=== PATIENT | female | born 1955 | race Caucasian/White ===

== ENCOUNTER 2016-05-28 21:56 | Inpatient (IN) ==
--- NOTE | 2016-05-28 22:24 | EKG Report ---
Stationary ECG Study [facility] ER Test Date: 05/28/2016 10:05:54 PM Pat Name: ALLA SALAS Department: Room: 287 Gender: F Ward Assistant: Sana : 1955 Requested by: Rei Mccabe Order Number: [id number] Reading MD: DREW NAPIER Intervals [place] Rate: 91 P: 48 IN: 163 QRS: 45 QRSD: 78 T: -14 QT: 337 QTc: 386 Interpretive Statements SINUS RHYTHM WITH OCCASIONAL VENTRICULAR PREMATURE COMPLEXES ISCHEMIA Electronically Signed On 05-29-16 09:21:51 ASSET SPECIALIST by DREW NAPIER [email or web address]
[2016-05-28] MEDS ORDERED: METOPROLOL TARTRATE 25 MG TABLET PO STA (22:28)
[2016-05-28] MEDS ORDERED: MORPHINE 2 MG/1 ML SYRINGE IV STA (22:28)
[2016-05-28] MEDS ORDERED: ASPIRIN 325 MG TABLET PO STA (22:28)
[2016-05-28] MEDS ORDERED: NITROGLYCERIN 2% OINT 1 INCH/GM PACK TOP STA (22:28)
[2016-05-28] MEDS ORDERED: ALUM/MAG/SIMETH/LIDO VISC 1:1 30 ML BOTTLE PO STA (22:28)
[2016-05-28] MEDS ORDERED: ONDANSETRON 4 MG/2 ML VIAL IV STA (22:28)
--- NOTE | 2016-05-28 22:44 | Emergency Department Note ---
Herman Hays Brittany, am scribing for, and in the presence of, Rei Yanes MD 22:33. Joaquín Hays Charles R, MD, personally performed the services described in this documentation, ascribed by Breonna Sutton in my presence, and it is both accurate and complete . Arrival - Arrival Chief Complaint: Chest Pain Stated Complaint: CHEST PAIN/NECK AND BACK ED Nursing Triage Note: C/C substernal chest pain, sharp sudden pains, non radiating, pain in right side of neck, short of breath started Sunday. Pain has been getting worse since. Not makes it worse or better. Left leg swelling and pain. Has stent in left illiac for blood clots Mode of Arrival: Ambulatory Limitations: No Limitations Source: Patient, Family, RN Notes Reviewed Time Seen by Provider: 05/28/16 22:19 - History of Present Illness HPI Narrative: Patient is a 61 y/o white female presenting to the ED with c/o intermittent "electric shock", substernal chest pain that onset yesterday. Patient also has c /o associated right-sided neck pain, shortness of breath, fatigue, nausea, diaphoresis, and headache with this. Patient notes that nothing makes pain better or worse. Patient reports that she has also been having some left leg pain with some swelling and is concerned about possible DVT. She does take an Aspirin a day. Patient notes that she is a patient of Dr. Baker, but has not seen him in about 5 years. Patient has a history of Left Iliac Stent Placement in 1994. Patient has no other complaint/pain in the ED at this time. Allergies/Adverse Reactions: Allergies Allergy/AdvReac Type Severity Reaction Status Date / Time iodine Allergy Severe ANAPHYLAXIS Verified 05/28/16 22:05 Wasp Venom Allergy Severe ANAPHYLAXIS Verified 05/28/16 22:05 Home Medications: Home Medications Medication Instructions Recorded Confirmed Type Aspirin [Ecotrin] 81 mg PO DAILY 08/10/14 05/28/16 History Bisoprolol Fumarate [Zebeta] 10 mg PO DAILY 08/10/14 05/28/16 History Citalopram [CeleXA] 40 mg PO DAILY 08/10/14 05/28/16 History Epinephrine [Epipen 2-Jeffery] 0.3 mg IJ DIRECTED #1 ml 08/10/14 05/28/16 Rx Liraglutide [Victoza 2-Jeffery] 1.6 ml IM AC SUPPER 08/10/14 05/28/16 History Montelukast Tab [Singulair Tab] 10 mg PO DAILY 08/10/14 05/28/16 History metFORMIN [Glucophage] 500 mg PO BID 08/10/14 05/28/16 History Albuterol Sulfate [Ventolin HFA] 2 puff INH Q4-6H PRN 11/25/15 05/28/16 History Atorvastatin [Lipitor] 10 mg PO BEDTIME 11/25/15 05/28/16 History Canagliflozin [Invokana] 300 mg PO DAILY 11/25/15 05/28/16 History ChlordiazePOX/CLIDINIUM 5-2.5 1 capsule PO TIDAC 11/25/15 05/28/16 History [Librax] Clorazepate [Tranxene] 7.5 mg PO BID PRN 11/25/15 05/28/16 History Diazepam [Valium] 10 mg PO BID PRN 11/25/15 05/28/16 History Diclofenac Sodium 75 mg PO BID 11/25/15 05/28/16 History Fluticasone/Salmeterol 250-50 1 puff INH BID 11/25/15 05/28/16 History [Advair 250-50] Gabapentin Cap/Tab [Neurontin 300 mg PO TID 11/25/15 05/28/16 History Cap/Tab] HYDROcodone/ACETAMIN 10-325 [Bowman 1 tablet PO Q6H PRN 11/25/15 05/28/16 History 10-325] Insulin Aspart [NovoLOG FlexPen] See Protocol SUBCUT DIRECTED 11/25/15 History Insulin Detemir [Levemir] 35 unit SUBCUT BEDTIME 11/25/15 05/28/16 History LORazepam TAB [Ativan Tab] 1 mg PO BID PRN 11/25/15 05/28/16 History Levothyroxine Tab [Synthroid Tab] 137 mcg PO DAILY@0700 11/25/15 05/28/16 History Metaxalone [Skelaxin] 800 mg PO TID PRN 11/25/15 05/28/16 History Ondansetron Tab [Zofran Tab] 4 mg PO TID PRN 11/25/15 05/28/16 History Pantoprazole Tab [Protonix Tab] 40 mg PO DAILY 11/25/15 05/28/16 History Potassium Chloride Cap/Tab [K Dur] 20 meq PO BID 11/25/15 05/28/16 History Promethazine Tab [Phenergan Tab] 25 mg PO BID PRN 11/25/15 05/28/16 History Tiotropium Inhalation [Spiriva 18 mcg INH DAILY 11/25/15 05/28/16 History Handihaler] Review of System - Review of System 12 point system: reviewed and no additional remarkable complaints except as stated - Review of System Constitutional: Present: diaphoresis Respiratory: Present: respiratory distress Cardiovascular: Present: chest pain Gastrointestinal: Present: nausea Musculoskeletal: Present: leg pain, neck pain Neurological: Present: headache Endocrine: Present: fatigue Medical,Surgical,& Family Hx - Medical History Cardio: History of: Cardiac Dysrhythmia, Hypertension Neurology: History of: Migraine, Peripheral Neuropathy Endocrine: History of: Diabetes Mellitus (NIDDM), Dyslipidemia, Thyroid Disorder Respiratory: History of: COPD, Obstructive Sleep Apnea Genitourinary: No history of: Bladder Problem, Kidney Stones Gastrointestinal: History of: GERD Musculoskeletal: History of: Back/Neck Problems (neck surgery) Hematology: History of: Clotting Problems (filter) Other: History of: Miscellaneous Medical Problems (migraines, depression , hypothyroid) - Surgical History Cardiac Surgeries: Sugical HX of: Cardiac Catheterization HEENT Surgeries: Surgical HX of: Thyroid Surgery Patient denies: Tonsilectomy & Adenoidectomy Abdominal Surgeries: Surgical HX of: Cholecystectomy, Colonoscopy, EGD Patient denies: Appendectomy Reproductive Surgeries: Surgical HX of;: Hysterectomy Orthopedic Surgeries: Patient denies;: Total Hip Replacement, Total Knee Replacement - Social History Smoking Status: Never smoker Frequency of Alcohol Use: None Type of Drug Use: None Exam Vital Signs: Vital Signs Temperature 97.7 F 05/28/16 21:59 Pulse Rate 89 05/28/16 21:59 Respiratory Rate 20 05/28/16 21:59 Blood Pressure 149/84 05/28/16 21:59 O2 Sat by Pulse Oximetry 93 L 05/28/16 21:59 - General General appearance: alert, in no apparent distress - Head Head exam: Present: atraumatic, normocephalic - Eye Eye exam: Present: PERRL, EOMI - ENT ENT exam: Present: mucous membranes moist, TM's normal bilaterally - Neck Neck exam: Present: full ROM, trachea midline. Absent: tenderness - Chest Chest inspection: Present: symmetric chest wall rise. Absent: tenderness - Respiratory Respiratory exam: Present: normal lung sounds bilaterally. Absent: rales, rhonchi, wheezes - Cardiovascular Cardiovascular exam: Present: regular rate, normal rhythm, normal heart sounds. Absent: murmur, rubs, gallop - Abdominal Exam Abdominal exam: Present: soft, normal bowel sounds. Absent: distention, tenderness - Extremities Exam Extremities exam: Present: full ROM, tenderness (left leg). Absent: pedal edema , calf tenderness - Back Exam Back exam: Present: full ROM. Absent: tenderness - Neurological Exam Neurological exam: Present: alert, oriented X3 - Psychiatric Psychiatric exam: Present: normal affect, normal mood - Skin Skin exam: Present: warm, dry, intact, normal color Course - Consultations Time: 23:31 Results - Labs CBC & BMP: 05/28/16 22:21 05/28/16 22:21 Lab Results: I have reviewed the patients labs Labs: Laboratory Tests 05/28/16 05/28/16 22:21 22:21 WBC 10.8 RBC 4.74 Hgb 13.2 Hct 41.3 MCV 87.1 MCH 28 MCHC 32.0 RDW 14.1 Plt Count 292 MPV 10.8 Neut % (Auto) 62.6 Lymph % (Auto) 28.0 [place] % (Auto) 7.0 Eos % (Auto) 1.2 Baso % (Auto) 0.6 Neut # (Auto) 6.8 Lymph # (Auto) 3.0 [place] # (Auto) 0.8 Eos # (Auto) 0.1 Baso # (Auto) 0.1 Immature Gran % 0.6 Nucleated RBC % 0.0 Immature Gran # 0.06 Nucleated RBCs # 0.00 INR 1.0 PT Patient/Control Mix 10.2 Laboratory Tests 05/28/16 22:21 Sodium 139 Potassium 3.2 L Chloride 99 Carbon Dioxide 31 Anion Gap 12.2 BUN 11 Creatinine 0.70 GFR Calculation 107 BUN/Creatinine Ratio 15.00 Glucose 130 H Calculated Osmolality 277.5 Calcium 8.8 Magnesium 2.0 Total Bilirubin < 0.39 AST 13 ALT 14 Alkaline Phosphatase 79 Troponin I < 0.015 Total Protein 7.2 Albumin 3.4 Globulin 3.8 H Albumin/Globulin Ratio 0.8 L Lipase 96.0 - Diagnostic Findings Procedure: Chest x-ray: report reviewed by me (1. Cardiomegaly without decompensation infiltrates or effusion; 2. Previous cervical fusion.), Ultrasound: report reviewed by me (Venous Doppler: No DVT.) Disposition Clinical Impression: Chest pain Case discussed with: patient, patient's family Disposition: Still a Patient Condition: Stable Time of Disposition: 23:31
--- NOTE | 2016-05-28 22:44 | XRay Report ---
Exam: XR chest 1V portable Date: 05/28/2016 10:29 PM Indication: Chest pain Comparison: 10/16/2013 Technical:AP portable Findings: Mild cardiac enlargement is present. ASVD is present. Previous cervical fusion plate present. A necklace superimpose exam. External cardiac leads and bra clips are present. No obvious infiltrate or effusions clearly seen. Impression: 1. Cardiomegaly without decompensation infiltrates or effusion 2. Previous cervical fusion PROCEDURE INTERPRETED AT [facility] DEPARTMENT OF RADIOLOGY Final Report Signed by: Dr. Braxton Tamayo
[2016-05-28 22:53] LABS: Basophils # 0.1 10*3/uL (0.0-0.2); Basophils % 0.6 % (0.0-0.8); Eosinophils # 0.1 10*3/uL (0.0-0.87); Eosinophils % 1.2 % (0.00-10.9); Hematocrit 41.3 VOL% (35.7-47.0); Hemoglobin 13.2 GM/DL (12.0-16.0); Immature Granulocytes % 0.6 %; Immature Granulocytes Absolute 0.06 #; Mean Corpuscular Hemoglobin 28 PG (27-34); Mean Corpuscular Volume 87.1 FL (87-102); Mean Platelet Volume 10.8 FL (9.6-12.0); Monocytes # 0.8 10*3/uL (0.11-0.8); Neutrophils # 6.8 10*3/uL (1.4-7.4); Neutrophils % 62.6 % (38.7-73.9); Platelet Count 292 10*3/uL (130-400); Red Blood Count 4.74 10*6/uL (3.8-5.5); Red Cell Distribution Width 14.1 % (9.3-17.3); White Blood Count 10.8 10*3/uL (4.5-13.71)
--- NOTE | 2016-05-28 22:55 | Ultrasound Report ---
Exam: US venous doppler LE BI Indication: Lower extremity pain and swelling Date: 05/28/2016 10:29 PM Comparison 10/17/2013 Findings: Grayscale color flow duplex/Doppler imaging and spectral analysis waveform imaging was performed with real-time ultrasound with image stored and captured. The right common femoral, superficial femoral, popliteal saphenous veins are patent with normal augmentation and compression. There is no evidence of popliteal or Enamorado's cyst. Normal wave form analysis present. Normal color flow The left common femoral, superficial femoral, popliteal saphenous veins are patent with normal augmentation and compression. There is no evidence of popliteal or Enamorado's cyst. Normal wave form analysis present. Normal color flow Impression: 1. No DVT PROCEDURE INTERPRETED AT [facility] DEPARTMENT OF RADIOLOGY Final Report Signed by: Dr. Braxton Tamayo
[2016-05-28 23:02] LABS: PT Patient Result 10.2 SECS
[2016-05-28 23:14] LABS: Alanine Aminotransferase 14 U/L (13-56); Albumin 3.4 G/DL (3.4-5.0); Alkaline Phosphatase 79 U/L (45-117); Aspartate Amino Transferase 13 U/L (0-37); Bilirubin,Total < 0.39 MG/DL (0.2-1.0); Blood Urea Nitrogen 11 MG/DL (7-18); Calcium 8.8 MG/DL (8.5-10.1); Glucose 130 MG/DL (74-106); Osmolality,Calculated 277.5 MOS/KG (273-304); Potassium 3.2 MMOL/L (3.5-5.1); Sodium 139 MMOL/L (136-145); Total Protein 7.2 G/DL (6.4-8.3); Troponin I Only < 0.015 NG/ML (0.00-0.045)
[2016-05-28] MEDS ORDERED: POTASSIUM CHLORIDE 20 MEQ TABLET PO STA (23:31)
[2016-05-29] MEDS ORDERED: POTASSIUM CHLORIDE 20 MEQ TABLET PO ONE (00:38)
[2016-05-29] MEDS ORDERED: MORPHINE 2 MG/1 ML SYRINGE ONE (00:38)
[2016-05-29] MEDS ORDERED: ASPIRIN 325 MG TABLET ONE (00:38)
[2016-05-29] MEDS ORDERED: NITROGLYCERIN 2% OINT 1 INCH/GM PACK TOP ONE (00:38)
[2016-05-29] MEDS ORDERED: ONDANSETRON 4 MG/2 ML VIAL ONE (00:38)
[2016-05-29] MEDS ORDERED: METOPROLOL TARTRATE 25 MG TABLET ONE (00:38)
[2016-05-29] MEDS ORDERED: ALUM/MAG/SIMETH/LIDO VISC 1:1 30 ML BOTTLE PO ONE (00:39)
[2016-05-29] MEDS ORDERED: PROMETHAZINE 25 MG TABLET PO PRN (01:39)
[2016-05-29] MEDS ORDERED: CLORAZEPATE 7.5 MG TABLET PO PRN (01:39)
[2016-05-29] MEDS ORDERED: SODIUM CHLORIDE 0.9% 1,000 ML IV SCH (01:39)
[2016-05-29] MEDS ORDERED: METAXALONE 800 MG TABLET PO PRN (01:39)
[2016-05-29] MEDS ORDERED: LORazepam 1 MG TABLET PO PRN (01:39)
[2016-05-29] MEDS ORDERED: ACETAMINOPHEN 325 MG TABLET PO PRN (01:39)
[2016-05-29] MEDS ORDERED: MORPHINE 2 MG/1 ML SYRINGE IV PRN (01:39)
[2016-05-29] MEDS ORDERED: DIAZEPAM 5 MG TABLET PO PRN (01:39)
[2016-05-29] MEDS ORDERED: DEXTROSE 50% 25 GM/50 ML VIAL IV PRN (01:39)
[2016-05-29] MEDS ORDERED: ALBUTEROL 2.5 MG/3 ML NEB RESP TX PRN (01:39)
[2016-05-29] MEDS ORDERED: ONDANSETRON 4 MG/2 ML VIAL IV PRN (01:39)
[2016-05-29] MEDS ORDERED: GLUCAGON 1 MG VIAL IM PRN (01:39)
[2016-05-29 02:11] LABS: Basophils # 0.1 10*3/uL (0.0-0.2); Basophils % 0.7 % (0.0-0.8); Eosinophils # 0.1 10*3/uL (0.0-0.87); Eosinophils % 1.3 % (0.00-10.9); Hematocrit 40.6 VOL% (35.7-47.0); Hemoglobin 12.8 GM/DL (12.0-16.0); Immature Granulocytes % 0.5 %; Immature Granulocytes Absolute 0.05 #; Lymphocytes # 2.8 10*3/uL (1.4-4.0); Lymphocytes % 28.3 % (21.3-54.2); Mean Corpuscular HGB Conc 31.5 GM/DL (32-36); Mean Corpuscular Hemoglobin 27 PG (27-34); Mean Platelet Volume 10.7 FL (9.6-12.0); Monocytes # 0.7 10*3/uL (0.11-0.8); Monocytes % 7.1 % (1.7-12.7); Neutrophils # 6.2 10*3/uL (1.4-7.4); Neutrophils % 62.1 % (38.7-73.9); Platelet Count 311 10*3/uL (130-400); Red Blood Count 4.72 10*6/uL (3.8-5.5); Red Cell Distribution Width 14.4 % (9.3-17.3)
[2016-05-29] MEDS: ENOXAPARIN 100 MG/ML SYRINGE SUBCUT SCH ×2 (02:15→15:31)
[2016-05-29 02:45] LABS: Albumin 3.4 G/DL (3.4-5.0); Bilirubin,Total 0.6 MG/DL (0.2-1.0); Calcium 8.9 MG/DL (8.5-10.1); Magnesium 2.1 MG/DL (1.8-2.4); Osmolality,Calculated 277.5 MOS/KG (273-304); Potassium 3.6 MMOL/L (3.5-5.1); Risk Ratio 5.64; Total Protein 6.6 G/DL (6.4-8.3); VLDL CHOLESTEROL 37.8 MG/DL
[2016-05-29] MEDS: NITROGLYCERIN 2% OINT 1 INCH/GM PACK TOP SCH ×4 (03:41→18:32)
[2016-05-29] MEDS: LEVOTHYROXINE 137 MCG TABLET PO SCH (06:55)
[2016-05-29] MEDS: IPRATROPIUM 500 MCG/2.5 ML NEB RESP TX SCH ×4 (08:17→20:04)
[2016-05-29] MEDS: ChlordiazePOXIDE/CLIDINIUM 5-2.5 MG CAPSULE PO SCH ×4 (08:26→17:57)
[2016-05-29] MEDS: INSULIN REGULAR 100 UNIT/ML SUBCUT SCH ×4 (08:26→21:06)
--- NOTE | 2016-05-29 08:32 | XRay Report ---
Exam: Chest 2 views Date: May 29, 2016 at 7:09 AM Comparison: Chest one view portable May 28, 2016 Reason: Shortness of breath Findings: There is borderline cardiomegaly. No focal consolidation, pneumothorax or pleural effusion is identified. No acute osseous process is seen. Note is made of surgical fusion of the cervical spine and surgical clips within the upper abdomen, including near the gastroesophageal junction. Impression: 1. Borderline cardiomegaly. 2. No acute pulmonary process is identified. PROCEDURE INTERPRETED AT [facility] DEPARTMENT OF RADIOLOGY Final Report Signed by: Dr. Brody Liang
--- NOTE | 2016-05-29 08:53 | Internal Med History&Physical ---
Assessment and Plan (1) Chest pain Status: Acute Assessment and plan: 61-year-old female admitted to acute care * Chest pain. It appears to be atypical in nature. Her EKG shows nonspecific ST-T changes. Her cardiac enzymes are negative. Patient does have multiple risk factors. Will get cardiology to evaluate. * Hypertension. Continue current medication * History of GERD. Patient has required esophageal dilatation in the past and now she thinks that this is more typical of pain she has had it with reflux. Will consult Dr. Rinaldi * Diabetes. We will keep her on a sliding scale * Left lower extremity pain. Venous Doppler study was negative. She has history of peripheral vascular disease and had a left iliac stent placed about 5 -6 years ago. Will check arterial Doppler studies * Depression. Continue current treatment * Hypothyroidism. Will check the TSH * Hyperlipidemia. Will increase Lipitor dose * Obesity and multiple risk factors for sleep apnea. Will evaluate * Discussed with patient and her daughter Current Visit: Yes (2) Diabetes Status: Acute Current Visit: Yes (3) Hypothyroidism Status: Acute Current Visit: Yes (4) History of peripheral vascular disease Status: Acute Current Visit: Yes (5) Depression Status: Acute Current Visit: Yes (6) Anxiety Status: Acute Current Visit: Yes (7) GERD (gastroesophageal reflux disease) Status: Acute Current Visit: Yes History of Present Illness Chief complaint: Chest pain History of present illness: Ms. Garcia is a 61 year old female with history of multiple medical problems including hypertension, diabetes, hypothyroidism, hyperlipidemia, back pain, asthma who presented to the emergency room with substernal chest pain. She is having episodes of sharp sudden chest pains. It is mainly in the right side of the neck and chest wall. It is not reproducible on pressing and it is not sore. She has been having this pain off and on for the last 3-4 days but got worse yesterday. He is also having some pain and swelling in the left lower extremity where she has had previous stent in the left iliac artery. She has had shortness of breath associated with the chest pain. She is also been nauseated and had some diaphoresis. She denies any previous history of heart disease. She lives at home. She does not smoke or drink alcohol Home Medications Medication Instructions Recorded Confirmed Type Aspirin [Ecotrin] 81 mg PO DAILY 08/10/14 05/28/16 History Bisoprolol Fumarate [Zebeta] 10 mg PO DAILY 08/10/14 05/28/16 History Citalopram [CeleXA] 40 mg PO DAILY 08/10/14 05/28/16 History Epinephrine [Epipen 2-Jeffery] 0.3 mg IJ DIRECTED #1 ml 08/10/14 11/26/15 Rx Liraglutide [Victoza 2-Jeffery] 1.6 ml IM AC SUPPER 08/10/14 05/28/16 History Montelukast Tab [Singulair Tab] 10 mg PO DAILY 08/10/14 05/28/16 History metFORMIN [Glucophage] 500 mg PO BID 08/10/14 11/25/15 History Albuterol Sulfate [Ventolin HFA] 2 puff INH Q4-6H PRN 11/25/15 05/28/16 History Atorvastatin [Lipitor] 10 mg PO BEDTIME 11/25/15 11/25/15 History Canagliflozin [Invokana] 300 mg PO DAILY 11/25/15 05/28/16 History ChlordiazePOX/CLIDINIUM 5-2.5 1 capsule PO TIDAC 11/25/15 05/28/16 History [Librax] Clorazepate [Tranxene] 15 mg PO BID PRN 11/25/15 05/29/16 History Diazepam [Valium] 10 mg PO BID PRN 11/25/15 11/25/15 History Diclofenac Sodium 75 mg PO BID 11/25/15 05/28/16 History Fluticasone/Salmeterol 250-50 1 puff INH BID 11/25/15 05/28/16 History [Advair 250-50] Gabapentin Cap/Tab [Neurontin 300 mg PO DAILY 11/25/15 05/29/16 History Cap/Tab] HYDROcodone/ACETAMIN 10-325 [Rhine 1 tablet PO Q6H PRN 11/25/15 05/28/16 History 10-325] Insulin Aspart [NovoLOG FlexPen] See Protocol SUBCUT DIRECTED 11/25/15 History Insulin Detemir [Levemir] 25 unit SUBCUT BEDTIME 11/25/15 05/29/16 History LORazepam TAB [Ativan Tab] 1 mg PO BID PRN 11/25/15 05/28/16 History Levothyroxine Tab [Synthroid Tab] 137 mcg PO DAILY@0700 11/25/15 05/28/16 History Metaxalone [Skelaxin] 800 mg PO TID PRN 11/25/15 05/28/16 History Ondansetron Tab [Zofran Tab] 4 mg PO TID PRN 11/25/15 05/28/16 History Pantoprazole Tab [Protonix Tab] 40 mg PO DAILY 11/25/15 05/28/16 History Potassium Chloride Cap/Tab [K Dur] 20 meq PO BID 11/25/15 11/25/15 History Promethazine Tab [Phenergan Tab] 25 mg PO BID PRN 11/25/15 05/28/16 History Tiotropium Inhalation [Spiriva 18 mcg INH DAILY 11/25/15 11/25/15 History Handihaler] Potassium Chloride Cap/Tab [Micro 8 meq PO BID 05/29/16 05/29/16 History K] Zolpidem [Ambien] 5 mg PO BEDTIME PRN 05/29/16 05/29/16 History amLODIPine [Norvasc] 10 mg PO DAILY 05/29/16 05/29/16 History traMADol TAB [Ultram] 50 mg PO Q6H PRN 05/29/16 05/29/16 History Allergies Allergy/AdvReac Type Severity Reaction Status Date / Time iodine Allergy Severe ANAPHYLAXIS Verified 05/28/16 22:05 Wasp Venom Allergy Severe ANAPHYLAXIS Verified 05/28/16 22:05 Medical,Surgical,& Family Hx - Medical History Cardio: History of: Cardiac Dysrhythmia, Hypertension Psychological: History of: Anxiety Disorders, Depression Neurology: History of: Migraine, Peripheral Neuropathy Endocrine: History of: Diabetes Mellitus (NIDDM), Dyslipidemia, Thyroid Disorder Respiratory: History of: Asthma, COPD Genitourinary: No history of: Bladder Problem, Kidney Stones Gastrointestinal: History of: GERD (Has required EGD in the past) Musculoskeletal: History of: Back/Neck Problems (neck surgery) Hematology: History of: Clotting Problems (filter) Other: History of: Miscellaneous Medical Problems (migraines, depression , hypothyroid) - Surgical History Cardiac Surgeries: Sugical HX of: Cardiac Catheterization HEENT Surgeries: Surgical HX of: Thyroid Surgery Patient denies: Tonsilectomy & Adenoidectomy Abdominal Surgeries: Surgical HX of: Cholecystectomy, Colonoscopy, EGD Patient denies: Appendectomy Reproductive Surgeries: Surgical HX of;: Hysterectomy Orthopedic Surgeries: Patient denies;: Total Hip Replacement, Total Knee Replacement - Social History Smoking Status: Never smoker Frequency of Alcohol Use: None Type of Drug Use: None Functional capacity: independent ambulation 12 point system: reviewed and no additional remarkable complaints except as stated (Discussed in HPI) Exam - Constitutional Vitals: Period Temp Pulse Resp BP Sys/Ziegler Pulse Ox Last 24 Hr 96.8 F-98.7 F 61-86 16-20 136-157/65-74 92-97 Exam: Examination: GENERAL: NAD. HEENT: PERRLA. EOMI. Mucous membranes are moist. NECK: Neck is supple. No JVD. No carotid bruit. No thyromegaly. CVS: Regular rate and rhythm. S1 and S2 are normal. No chest wall tenderness RESPIRATORY: Lungs are clear. No rales or rhonchi. ABDOMEN: Soft and nontender. Bowel sounds are present. No hepatosplenomegaly. EXT: No edema. Peripheral pulses are present. No obvious calf tenderness HANDKERCHIEF FOLDER: Patient is awake, alert and oriented to time place and person. Cranial nerves II through XII are grossly intact. Motor strength is 5 over 5 both upper and lower extremities. SKIN: Warm and dry. MSK: No obvious deformity. Results - Labs CBC & BMP: 05/29/16 01:48 05/29/16 01:48 Lab Results: I have reviewed the past 24 hour labs
[2016-05-29] MEDS ORDERED: metFORMIN 500 MG TABLET PO SCH (09:00)
[2016-05-29] MEDS ORDERED: NON-FORMULARY MEDICATION (Canagliflozin [Invokana] 300 MG) PO SCH (09:00)
[2016-05-29] MEDS ORDERED: ASPIRIN EC 81 MG TABLET PO SCH (09:00)
[2016-05-29] MEDS: PANTOPRAZOLE 40 MG VIAL IV SCH (09:17)
[2016-05-29] MEDS: FLUTICASONE/SALMETEROL 250-50 DISKUS 14 DOSE INH SCH ×2 (09:17→21:09)
[2016-05-29 09:19] LABS: Free T4 (Free Thyroxine) 1.35 NG/DL (0.76-1.46); Thyroid Stimulating Hormone 0.448 uIU/ml (0.358-3.74)
[2016-05-29] MEDS: BISOPROLOL 5 MG TABLET PO SCH (10:21)
[2016-05-29] MEDS: GABAPENTIN 300 MG CAPSULE PO SCH ×3 (10:21→21:08)
[2016-05-29] MEDS: amLODIPine 10 MG TABLET PO SCH (10:22)
[2016-05-29] MEDS: DICLOFENAC SODIUM 75 MG TABLET PO SCH ×2 (10:22→21:08)
[2016-05-29] MEDS: CITALOPRAM 40 MG TABLET PO SCH (10:22)
[2016-05-29] MEDS: MONTELUKAST 10 MG TABLET PO SCH (10:22)
[2016-05-29] MEDS: POTASSIUM CHLORIDE 20 MEQ TABLET PO SCH ×2 (10:22→21:08)
[2016-05-29] MEDS: ASPIRIN EC 81 MG TABLET PO SCH (10:22)
[2016-05-29] MEDS: METOPROLOL TARTRATE 25 MG TABLET PO SCH ×2 (10:22→21:08)
[2016-05-29] MEDS: DOCUSATE SODIUM 100 MG CAPSULE PO SCH ×2 (10:23→21:07)
--- NOTE | 2016-05-29 11:12 | Gastrointestinal Consult Note ---
<Darlyn Jensen - Last Filed: 05/29/16 11:08> Assessment and Plan (1) Atypical chest pain Status: Acute Assessment and plan: 05/29-Sudden onset severe chest pain with diaphoresis and nausea, with recent hx of pain similar following ingestion of meal. Hx of esophgeal stricture with dysphagia symptoms. Cardiac workup in progress. Protonix 40mg qd started. Plan for EGD when CV workup complete and felt safe to proceed with endoscopy. Plan and addendum to follow by Dr Rinaldi. Current Visit: Yes History of Present Illness Chief complaint: Atypical chest pain History of present illness: Ms. Garcia is a 61 year old female who presents to the hospital with sudden onset of chest pain. Pt states she was in her usual state of health until yesterday when she had a sudden onset of electrical shock sensations in her chest that she sates was severe in nature. She states she has had some small "tingling" sensations in her chest over the last several weeks, usually associated with eating, however states this was more severe. She has had some nausea with this but states she is unable to belch or vomit due to her fundopilication surgery 10 years ago that she states did help. She has GERD but it is well controlled. She reports that the pain did not radiate however was associated with diaphoresis. She has had increased dyspepsia as well with some bloating and feeling like she isnt digesting well at times. Denies any weight loss other than a few warranted pounds she lost with diet modification. She has a history of PUD but states this was decades ago. Denies any melena or hematochezia. Denies any fever or chills. Denies NSAID use however Diclofenac BID is noted on her home medication list. States that she feels this is more GI related due to feels similar to her epigastric pain in the past. Has a history of dysphagia/esophageal stricture with last EGD November 2015 with finding of gastritis and negative H. pylori/chronic inflammation, reactive epithelial changes on pathology. Hx of cholecystectomy. Reports her DM to be controlled. Pt does report the last several weeks she has had increase in difficulty with some solids and pills, denies problems with liquids. She also states she coughs at times when eating and has been hoarse here recently. Home Medications Medication Instructions Recorded Confirmed Type Aspirin [Ecotrin] 81 mg PO DAILY 08/10/14 05/28/16 History Bisoprolol Fumarate [Zebeta] 10 mg PO DAILY 08/10/14 05/28/16 History Citalopram [CeleXA] 40 mg PO DAILY 08/10/14 05/28/16 History Liraglutide [Victoza 2-Jeffery] 1.6 ml IM AC SUPPER 08/10/14 05/28/16 History Montelukast Tab [Singulair Tab] 10 mg PO DAILY 08/10/14 05/28/16 History Albuterol Sulfate [Ventolin HFA] 2 puff INH Q4-6H PRN 11/25/15 05/28/16 History Canagliflozin [Invokana] 300 mg PO DAILY 11/25/15 05/28/16 History ChlordiazePOX/CLIDINIUM 5-2.5 1 capsule PO TIDAC 11/25/15 05/28/16 History [Librax] Clorazepate [Tranxene] 15 mg PO BID PRN 11/25/15 05/29/16 History Diclofenac Sodium 75 mg PO BID 11/25/15 05/28/16 History Fluticasone/Salmeterol 250-50 1 puff INH BID 11/25/15 05/28/16 History [Advair 250-50] Gabapentin Cap/Tab [Neurontin 300 mg PO DAILY 11/25/15 05/29/16 History Cap/Tab] HYDROcodone/ACETAMIN 10-325 [[place] 1 tablet PO Q6H PRN 11/25/15 05/28/16 History 10-325] Insulin Aspart [NovoLOG FlexPen] See Protocol SUBCUT DIRECTED 11/25/15 History Insulin Detemir [Levemir] 25 unit SUBCUT BEDTIME 11/25/15 05/29/16 History LORazepam TAB [Ativan Tab] 1 mg PO BID PRN 11/25/15 05/28/16 History Levothyroxine Tab [Synthroid Tab] 137 mcg PO DAILY@0700 11/25/15 05/28/16 History Metaxalone [Skelaxin] 800 mg PO TID PRN 11/25/15 05/28/16 History Ondansetron Tab [Zofran Tab] 4 mg PO TID PRN 11/25/15 05/28/16 History Pantoprazole Tab [Protonix Tab] 40 mg PO DAILY 11/25/15 05/28/16 History Promethazine Tab [Phenergan Tab] 25 mg PO BID PRN 11/25/15 05/28/16 History Potassium Chloride Cap/Tab [Micro 8 meq PO BID 05/29/16 05/29/16 History K] Zolpidem [Ambien] 5 mg PO BEDTIME PRN 05/29/16 05/29/16 History amLODIPine [Norvasc] 10 mg PO DAILY 05/29/16 05/29/16 History traMADol TAB [Ultram] 50 mg PO Q6H PRN 05/29/16 05/29/16 History Allergies Allergy/AdvReac Type Severity Reaction Status Date / Time iodine Allergy Severe ANAPHYLAXIS Verified 05/28/16 22:05 Wasp Venom Allergy Severe ANAPHYLAXIS Verified 05/28/16 22:05 Medical,Surgical,& Family Hx - Medical History Cardio: History of: Cardiac Dysrhythmia, Hypertension Psychological: History of: Anxiety Disorders, Depression Neurology: History of: Migraine, Peripheral Neuropathy Endocrine: History of: Diabetes Mellitus (NIDDM), Dyslipidemia, Thyroid Disorder Respiratory: History of: Asthma, COPD, Obstructive Sleep Apnea Genitourinary: No history of: Bladder Problem, Kidney Stones Gastrointestinal: History of: GERD (Has required EGD in the past) Musculoskeletal: History of: Back/Neck Problems (neck surgery) Hematology: History of: Clotting Problems (filter) Other: History of: Miscellaneous Medical Problems (migraines, depression , hypothyroid) - Surgical History Cardiac Surgeries: Sugical HX of: Cardiac Catheterization HEENT Surgeries: Surgical HX of: Thyroid Surgery Patient denies: Tonsilectomy & Adenoidectomy Abdominal Surgeries: Surgical HX of: Cholecystectomy, Colonoscopy, EGD Patient denies: Appendectomy Reproductive Surgeries: Surgical HX of;: Hysterectomy Orthopedic Surgeries: Patient denies;: Total Hip Replacement, Total Knee Replacement - Social History Smoking Status: Never smoker Frequency of Alcohol Use: None Type of Drug Use: None 12 point system: reviewed and no additional remarkable complaints except as stated - Constitutional Constitutional: Present: as per HPI - EENT Eyes: Present: as per HPI Ears: Present: as per HPI Nose, mouth and throat: Present: as per HPI, dysphagia - Cardiovascular Cardiovascular: Present: as per HPI, chest pain at rest - Respiratory Respiratory: Present: as per HPI - Gastrointestinal Gastrointestinal: Present: as per HPI, dyspepsia, dysphagia, nausea - Genitourinary Genitourinary: Present: as per HPI - Musculoskeletal Musculoskeletal: Present: as per HPI - Neurological Neurological: Present: as per HPI - Psychiatric Psychiatric: Present: as per HPI - Endocrine Endocrine: Present: as per HPI - Hematologic/Lymphatic Hematologic/Lymphatic: Present: as per HPI Exam - Constitutional Vitals: Period Temp Pulse Resp BP Sys/Ziegler Pulse Ox Last 24 Hr 96.8 F-98.7 F 61-86 16-20 136-157/65-74 92-97 General appearance: normal weight, no acute distress - Head Head exam: Present: normal inspection, normocephalic - Eye Eye exam: Present: other (lids and conjunctiva unremarakble). Absent: scleral icterus - ENT ENT exam: Present: normal exam, normal oropharynx - Neck Neck exam: Present: normal inspection - Respiratory Respiratory exam: Present: clear to auscultation bilaterally. Absent: rales, rhonchi, wheezes - Cardiovascular Cardiovascular exam: Present: regular rate and rhythm. Absent: diastolic murmur , JVD, systolic murmur - GI/Abdominal GI/Abdominal exam: Present: normal bowel sounds, soft. Absent: ascites, distended, mass, organomegaly, tenderness - Extremities Exam Extremities exam: Present: normal inspection, full ROM - Back Exam Back exam: Present: normal inspection - Neurological Exam Neurological exam: Present: alert, oriented X3 - Psychiatric Psychiatric exam: Present: normal affect, normal mood - Skin Skin exam: Present: normal color, warm, dry Results - Labs CBC & BMP: 05/29/16 01:48 05/29/16 01:48 Lab Results: I have reviewed the past 24 hour labs <Dae Rinaldi - Last Filed: 05/29/16 18:29> History of Present Illness History of present illness: Ms. Garcia is a 61 year old female Exam - Constitutional Vitals: Period Temp Pulse Resp BP Sys/Ziegler Pulse Ox Last 24 Hr 96.8 F-98.7 F 60-86 16-20 136-157/65-82 85-99 Results - Labs CBC & BMP: 05/29/16 01:48 05/29/16 01:48
--- NOTE | 2016-05-29 11:33 | Cardiology Consult Note ---
Shelia Hays April RN, am scribing for, and in the presence of, Vannesa Melgar MD 11:30. Assessment and Plan - Time spent with patient Time spent with patient: Greater than 30 minutes (1) Chest pain Status: Acute Assessment and plan: She is pain free now, troponins have been negative. In general her sx are atypical. However, she also does have some associated breath and is at intermediate risk of underlying coronary artery disease. We will perform stress testing for further risk stratification echo. Current Visit: Yes (2) Diabetes Status: Chronic Current Visit: No (3) GERD (gastroesophageal reflux disease) Status: Chronic Current Visit: Yes (4) History of peripheral vascular disease Status: Acute Assessment and plan: She is complaining of left lower extremity pain. Venous dopplers have been negative, arterial studies are unremarkable and she has robust pulses in the bilateral extremities. Current Visit: Yes (5) Hypothyroidism Status: Chronic Current Visit: No History of Present Illness - Data of Consult Patient: new to practice Consult date: 05/29/16 Requesting Physician: Umesh Nagel - Consult Narrative Reason for consult: chest pain History of present illness: Ms. Garcia is a 61 year old female who saw Dr. Baker several years ago with a history of hypertension, GERD, IDDM, PVD, depression, hypothyroid after thyroid cancer, dyslipidemia, asthma, and COPD. Her surgical history includes esophageal dilatation and wrap, right iliac stent, thyroidectomy, cholecystectomy, hysterectomy, neck, and cataract. She reports she had a heart cath with Dr. Baker 7-8 years ago. I can not find the records, but the patient says she had no blockages. She also reports having a filter placed because of blood clots to her left leg. She reports she stopped her cholesterol medicine about a month ago because of left hip pain. It has helped , but she continues to have some pain. She does use home oxygen because of her pulmonary problems, states she mostly uses it at night. She states she has been checked for sleep apnea in the past, but they were unable to fit her for a mask. Risk factors include hypertension, DM, dyslipidemia, obesity, and family history. She was in her usual state of health until Sunday when she developed sharp pain on the right side of her chest that went up to her right neck. She says it felt like "hot needles." She reports she is normally short of breath, but Sunday it was worse than usual. The pain would come and go, it was not constant. She continued to have these symptoms over the weekend, but Sunday it got worse and was occurring more frequently. She rates her pain as a 7 or 8 on a scale of 1-10 on Sunday. She continued to have worsening shortness of breath Sunday and was also diaphoretic and nauseated. She says nothing triggered or alleviated her pain. She had pain and dyspnea layng down as well as up walking around. She came to the ED for further evaluation. She reports she was given a GI cocktail as well as a pain pill in the ER, and pain was relieved. Currently she is pain free. Her breathing is what she says is normal for her, although she has been having some worsening PAULINO over the past month. She is not visibly dyspneic. Oxygen in use via NBP. She is in sinus rhythm with heart rates in the 60's. Troponins have been negative x 3. She is also complaining of left lower extremity pain that she says she has been having for a few months. She reports it hurts from behind her knee all the way down to her foot. She did have left iliac stent in 1994. Venous doppler has been negative, she is scheduled for arterial studies today. The daughter complains that the left leg is bigger than her mother's right leg. CC: Umesh Nagel MD - Home Medications and Allergies Home Medications: Home Medications Medication Instructions Recorded Confirmed Type Aspirin [Ecotrin] 81 mg PO DAILY 08/10/14 05/28/16 History Bisoprolol Fumarate [Zebeta] 10 mg PO DAILY 08/10/14 05/28/16 History Citalopram [CeleXA] 40 mg PO DAILY 08/10/14 05/28/16 History Liraglutide [Victoza 2-Jeffery] 1.6 ml IM AC SUPPER 08/10/14 05/28/16 History Montelukast Tab [Singulair Tab] 10 mg PO DAILY 08/10/14 05/28/16 History Albuterol Sulfate [Ventolin HFA] 2 puff INH Q4-6H PRN 11/25/15 05/28/16 History Canagliflozin [Invokana] 300 mg PO DAILY 11/25/15 05/28/16 History ChlordiazePOX/CLIDINIUM 5-2.5 1 capsule PO TIDAC 11/25/15 05/28/16 History [Librax] Clorazepate [Tranxene] 15 mg PO BID PRN 11/25/15 05/29/16 History Diclofenac Sodium 75 mg PO BID 11/25/15 05/28/16 History Fluticasone/Salmeterol 250-50 1 puff INH BID 11/25/15 05/28/16 History [Advair 250-50] Gabapentin Cap/Tab [Neurontin 300 mg PO DAILY 11/25/15 05/29/16 History Cap/Tab] HYDROcodone/ACETAMIN 10-325 [[place] 1 tablet PO Q6H PRN 11/25/15 05/28/16 History 10-325] Insulin Aspart [NovoLOG FlexPen] See Protocol SUBCUT DIRECTED 11/25/15 History Insulin Detemir [Levemir] 25 unit SUBCUT BEDTIME 11/25/15 05/29/16 History LORazepam TAB [Ativan Tab] 1 mg PO BID PRN 11/25/15 05/28/16 History Levothyroxine Tab [Synthroid Tab] 137 mcg PO DAILY@0700 11/25/15 05/28/16 History Metaxalone [Skelaxin] 800 mg PO TID PRN 11/25/15 05/28/16 History Ondansetron Tab [Zofran Tab] 4 mg PO TID PRN 11/25/15 05/28/16 History Pantoprazole Tab [Protonix Tab] 40 mg PO DAILY 11/25/15 05/28/16 History Promethazine Tab [Phenergan Tab] 25 mg PO BID PRN 11/25/15 05/28/16 History Potassium Chloride Cap/Tab [Micro 8 meq PO BID 05/29/16 05/29/16 History K] Zolpidem [Ambien] 5 mg PO BEDTIME PRN 05/29/16 05/29/16 History amLODIPine [Norvasc] 10 mg PO DAILY 05/29/16 05/29/16 History traMADol TAB [Ultram] 50 mg PO Q6H PRN 05/29/16 05/29/16 History Allergies/Adverse Reactions: Allergies Allergy/AdvReac Type Severity Reaction Status Date / Time iodine Allergy Severe ANAPHYLAXIS Verified 05/28/16 22:05 Wasp Venom Allergy Severe ANAPHYLAXIS Verified 05/28/16 22:05 - Constitutional Constitutional: Present: as per HPI - EENT Eyes: Present: blurry vision. Absent: requires corrective lense Ears: Absent: decreased hearing, ear pain, tinnitus Nose, mouth and throat: Present: hoarseness. Absent: epistaxis, headache(s) - Cardiovascular Cardiovascular: Present: chest pain at rest, chest pain with activity, dyspnea, dyspnea on exertion. Absent: edema, radiating jaw, neck or arm pain, palpitations - Respiratory Respiratory: Present: cough (nonproductive), dyspnea, dyspnea on exertion. Absent: hemoptysis - Gastrointestinal Gastrointestinal: Present: constipation, diarrhea, nausea. Absent: abdominal pain (reports she has chronic generalized abdominal tenderness), hematemesis, hematochezia, vomiting - Genitourinary Genitourinary: Absent: difficulty urinating, flank pain, hematuria, urinary frequency - Musculoskeletal Musculoskeletal: Present: arthralgias, joint swelling (right hip), myalgias - Neurological Neurological: Absent: abnormal gait, abnormal speech, confusion, dizziness, frequent falls, syncope - Psychiatric Psychiatric: Present: depression. Absent: confusion, memory loss - Endocrine Endocrine: Present: cold intolerance (raynaud's syndrome), fatigue - Hematologic/Lymphatic Hematologic/Lymphatic: Absent: easy bleeding, easy bruising Medical,Surgical,& Family Hx - Medical History Cardio: History of: Hypertension Psychological: History of: Anxiety Disorders, Depression Neurology: History of: Peripheral Neuropathy Endocrine: History of: Diabetes Mellitus (IDDM), Dyslipidemia, Thyroid Disorder Respiratory: History of: Asthma, COPD, Obstructive Sleep Apnea Gastrointestinal: History of: GERD (Has required EGD in the past) Musculoskeletal: History of: Back/Neck Problems (neck surgery) Hematology: History of: Clotting Problems (filter) - Surgical History Cardiac Surgeries: Sugical HX of: Cardiac Catheterization HEENT Surgeries: Surgical HX of: Eye Surgery (cataract), Thyroid Surgery Abdominal Surgeries: Surgical HX of: Abdominal Surgery (cholecystectomy and esophageal dilatation and wrap), Cholecystectomy, Colonoscopy, EGD Reproductive Surgeries: Surgical HX of;: Hysterectomy Orthopedic Surgeries: Surgical HX of;: Orthopedic Surgery (neck) Additional Surgical History: right iliac stent - Family History Family History: Reports;: Family Diabetes (father), Family Heart Disease (father ), Family Hypertension (mother and father) - Social History Smoking Status: Never smoker Have you smoked in the last 12 months: No Frequency of Alcohol Use: None Type of Drug Use: None Marital Status: Lives With:: Alone Functional capacity: independent ambulation Physical Examination Vital Signs Temp Pulse Resp BP Pulse Ox 97.7 F 89 20 149/84 93 L 05/28/16 21:59 05/28/16 21:59 05/28/16 21:59 05/28/16 21:59 05/28/16 21:59 General: Present: Appears Well, No Apparent Distress HEENT: Present: EOMI, Mucus Membranes Moist. Absent: Jaundice, Pallor Neck: Present: Supple Neck, Midline Trachea, No JVD/HJR Cardiac: Present: Reg Rate and Rhythm, S1/S2, No Murmur. Absent: Tachycardia, Bradycardia Lungs: Present: Normal Breath Sounds, Oxygen (NBP), No Wheeze, Rales, Rhonchi Neuro: Present: Coordination Normal. Absent: Weakness, Resting Tremor, Essential Tremor Abdomen: Present: Soft, Active Bowel Sounds, Tender, Non-Tender. Absent: Distended Skin: Present: Clear. Absent: Rash, Suspicious Lesions, Bruising, Burned Musculoskeletal: Present: Pain in Joint (right hip). Absent: Decreased Range of Motion, Fluid Collection Gait: Present: Normal Gait Extremities: Present: Normal Gait, Normal Upper Extr. Pulses, Normal Lower Extr. Pulses, Edema (trace edema to lower extremities) Result/EKG - Labs CBC & BMP: 05/29/16 01:48 05/29/16 01:48 Lab Results: I have reviewed the past 24 hour labs Labs: Laboratory Results - last 24 hr 05/29/16 05/29/16 05/29/16 01:48 01:48 01:48 WBC 10.0 RBC 4.72 Hgb 12.8 Hct 40.6 MCV 86.0 L MCH 27 MCHC 31.5 L RDW 14.4 Plt Count 311 MPV 10.7 Neut % (Auto) 62.1 Lymph % (Auto) 28.3 [place] % (Auto) 7.1 Eos % (Auto) 1.3 Baso % (Auto) 0.7 Neut # (Auto) 6.2 Lymph # (Auto) 2.8 [place] # (Auto) 0.7 Eos # (Auto) 0.1 Baso # (Auto) 0.1 Immature Gran % 0.5 Nucleated RBC % 0.0 Immature Gran # 0.05 Nucleated RBCs # 0.00 Sodium 139 Potassium 3.6 Chloride 101 Carbon Dioxide 34 H Anion Gap 7.6 BUN 10 Creatinine 0.70 GFR Calculation 107 BUN/Creatinine Ratio 14.00 Glucose 129 H POC Glucose Calculated Osmolality 277.5 Calcium 8.9 Magnesium 2.1 Total Bilirubin 0.60 AST 17 ALT 14 Alkaline Phosphatase 81 Troponin I < 0.015 B-Natriuretic Peptide Total Protein 6.6 Albumin 3.4 Globulin 3.2 Albumin/Globulin Ratio 1.0 L Triglycerides 189 H Cholesterol 254 H LDL Cholesterol 178.0 VLDL Cholesterol 37.8 HDL Cholesterol 45 Heart Disease Risk Ratio 5.64 Free T4 TSH 3rd Generation 05/29/16 05/29/16 05/29/16 01:48 04:32 07:40 WBC RBC Hgb Hct MCV MCH MCHC RDW Plt Count MPV Neut % (Auto) Lymph % (Auto) [place] % (Auto) Eos % (Auto) Baso % (Auto) Neut # (Auto) Lymph # (Auto) [place] # (Auto) Eos # (Auto) Baso # (Auto) Immature Gran % Nucleated RBC % Immature Gran # Nucleated RBCs # Sodium Potassium Chloride Carbon Dioxide Anion Gap BUN Creatinine GFR Calculation BUN/Creatinine Ratio Glucose POC Glucose 123 H Calculated Osmolality Calcium Magnesium Total Bilirubin AST ALT Alkaline Phosphatase Troponin I < 0.015 B-Natriuretic Peptide 14 Total Protein Albumin Globulin Albumin/Globulin Ratio Triglycerides Cholesterol LDL Cholesterol VLDL Cholesterol HDL Cholesterol Heart Disease Risk Ratio Free T4 TSH 3rd Generation 05/29/16 Unknown WBC RBC Hgb Hct MCV MCH MCHC RDW Plt Count MPV Neut % (Auto) Lymph % (Auto) [place] % (Auto) Eos % (Auto) Baso % (Auto) Neut # (Auto) Lymph # (Auto) [place] # (Auto) Eos # (Auto) Baso # (Auto) Immature Gran % Nucleated RBC % Immature Gran # Nucleated RBCs # Sodium Potassium Chloride Carbon Dioxide Anion Gap BUN Creatinine GFR Calculation BUN/Creatinine Ratio Glucose POC Glucose Calculated Osmolality Calcium Magnesium Total Bilirubin AST ALT Alkaline Phosphatase Troponin I B-Natriuretic Peptide Total Protein Albumin Globulin Albumin/Globulin Ratio Triglycerides Cholesterol LDL Cholesterol VLDL Cholesterol HDL Cholesterol Heart Disease Risk Ratio Free T4 1.35 TSH 3rd Generation 0.448 - EKG EKG results: interpreted by me EKG shows: sinus rhythm (non-specific ST changes) I, Vannesa Melgar MD, personally performed the services described in this documentation, ascribed by Radha Bass RN in my presence, and it is both accurate and complete .
[2016-05-29] MEDS ORDERED: REGADENOSON 0.4 MG/5 ML SYRINGE IV ONE (13:36)
--- NOTE | 2016-05-29 15:19 | Event Note ---
Patient attempted GXT portion of stress test however, due to leg fatigue and the fact that she had a beta jean pierre this morning, heart rate was slow to increase and therefore patient was transitioned to Lexiscan protocol. She tolerated the procedure well. No ST changes noted. Poor exercise tolerance noted. Patient is being routed to nuclear medicine for completion of final scan. Dr. Melgar to read, interpret and advise.
[2016-05-29] MEDS ORDERED: LIRAGLUTIDE IM SCH (16:30)
--- NOTE | 2016-05-29 17:42 | Sleep Medicine Consult ---
Assessment and Plan (1) Obstructive sleep apnea Status: Acute Assessment and plan: This patient does need to be reevaluated for her YRIS. We will set her up for outpatient polysomnography. With the severity of her health issues, reevaluation is indicated. She certainly could benefit from CPAP therapy and we will work with her to help with compliance. Current Visit: Yes (2) Hypothyroidism Status: Chronic Assessment and plan: I would recommend follow-up of TSH levels that this is not been done recently. Untreated hypothyroidism can be a contributing factor to sleep apnea. Current Visit: No (3) Diabetes Status: Chronic Assessment and plan: The prevalence rate for obstructive sleep apnea in patients with type 2 diabetes can be as high as 86%. Those patients with moderate to severe obstructive sleep apnea are at a greater risk for diabetic nephropathy and neuropathy. Compliance with CPAP therapy for these patients can lead to improvement in glycemic control and improvement in insulin sensitivity. Current Visit: No History of Present Illness Chief complaint: sleep apnea History of present illness: Ms. Garcia is a 61 year old female with remot sleep evaluation done in 2001 and then again in 2005. 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 She had primary snoring at that time with no evidence of significant obstructive sleep apnea. He underwent reevaluation in 2005 and was found to have moderate obstructive sleep apnea with an AHI of 25. She apparently was placed on CPAP of 10 cm at that time and was re-titrated in July 2009 and was titrated up to 18 cm of CPAP. Those studies were interpreted by Dr. Martinez. She had difficulty tolerating CPAP and did not utilize CPAP. She does not even remember what happened to her machine thereafter and has not used it in several years. She continues to snore loudly and awaken from sleep short of breath. She denies significant sleepiness but does have underlying chronic health issues of hypertension and type 2 diabetes. She also has a history of surgical hypothyroidism after undergoing thyroidectomy for thyroid cancer. Her [place] sleepiness score is only 6. She does awaken up to 3 times a night to urinate. She was admitted on this occasion for chest pain and shortness of breath. Home Medications Medication Instructions Recorded Confirmed Type Aspirin [Ecotrin] 81 mg PO DAILY 08/10/14 05/28/16 History Bisoprolol Fumarate [Zebeta] 10 mg PO DAILY 08/10/14 05/28/16 History Citalopram [CeleXA] 40 mg PO DAILY 08/10/14 05/28/16 History Liraglutide [Victoza 2-Jeffery] 1.6 ml IM AC SUPPER 08/10/14 05/28/16 History Montelukast Tab [Singulair Tab] 10 mg PO DAILY 08/10/14 05/28/16 History Albuterol Sulfate [Ventolin HFA] 2 puff INH Q4-6H PRN 11/25/15 05/28/16 History Canagliflozin [Invokana] 300 mg PO DAILY 11/25/15 05/28/16 History ChlordiazePOX/CLIDINIUM 5-2.5 1 capsule PO TIDAC 11/25/15 05/28/16 History [Librax] Clorazepate [Tranxene] 15 mg PO BID PRN 11/25/15 05/29/16 History Diclofenac Sodium 75 mg PO BID 11/25/15 05/28/16 History Fluticasone/Salmeterol 250-50 1 puff INH BID 11/25/15 05/28/16 History [Advair 250-50] Gabapentin Cap/Tab [Neurontin 300 mg PO DAILY 11/25/15 05/29/16 History Cap/Tab] HYDROcodone/ACETAMIN 10-325 [[place] 1 tablet PO Q6H PRN 11/25/15 05/28/16 History 10-325] Insulin Aspart [NovoLOG FlexPen] See Protocol SUBCUT DIRECTED 11/25/15 History Insulin Detemir [Levemir] 25 unit SUBCUT BEDTIME 11/25/15 05/29/16 History LORazepam TAB [Ativan Tab] 1 mg PO BID PRN 11/25/15 05/28/16 History Levothyroxine Tab [Synthroid Tab] 137 mcg PO DAILY@0700 11/25/15 05/28/16 History Metaxalone [Skelaxin] 800 mg PO TID PRN 11/25/15 05/28/16 History Ondansetron Tab [Zofran Tab] 4 mg PO TID PRN 11/25/15 05/28/16 History Pantoprazole Tab [Protonix Tab] 40 mg PO DAILY 11/25/15 05/28/16 History Promethazine Tab [Phenergan Tab] 25 mg PO BID PRN 11/25/15 05/28/16 History Potassium Chloride Cap/Tab [Micro 8 meq PO BID 05/29/16 05/29/16 History K] Zolpidem [Ambien] 5 mg PO BEDTIME PRN 05/29/16 05/29/16 History amLODIPine [Norvasc] 10 mg PO DAILY 05/29/16 05/29/16 History traMADol TAB [Ultram] 50 mg PO Q6H PRN 05/29/16 05/29/16 History Allergies Allergy/AdvReac Type Severity Reaction Status Date / Time iodine Allergy Severe ANAPHYLAXIS Verified 05/28/16 22:05 Wasp Venom Allergy Severe ANAPHYLAXIS Verified 05/28/16 22:05 Review of systems: Notable for swelling in her lower legs and is well restlessness of her legs. Exam (Pulmonay) H&P - Constitutional Vitals: Period Temp Pulse Resp BP Sys/Ziegler Pulse Ox Last 24 Hr 96.8 F-98.7 F 60-86 16-20 136-157/65-82 85-99 Exam: She is alert and responsive in no acute distress. She has a neck circumference of 18-1/4 inches. Pupils equal round reactive to light and accommodation. Oropharynx with class III Mallampati exam. Neck supple without adenopathy or thyromegaly. No supraclavicular adenopathy is noted. Chest with symmetrical breath sounds without focal wheezes, rhonchi, or rales. Cardiac exam reveals a regular rhythm without murmur or gallop. Abdomen soft nontender without palpable hepatosplenomegaly or mass. Extremities are without clubbing cyanosis or edema. Neurologically, she is grossly intact. She moves all extremities with good strength and ambulates with a normal gait. Medical,Surgical,& Family Hx - Medical History Cardio: History of: Cardiac Dysrhythmia, Hypertension Psychological: History of: Anxiety Disorders, Depression Neurology: History of: Migraine, Peripheral Neuropathy Endocrine: History of: Diabetes Mellitus (IDDM), Diabetes Mellitus (NIDDM), Dyslipidemia, Thyroid Disorder Respiratory: History of: Asthma, COPD, Obstructive Sleep Apnea Genitourinary: No history of: Bladder Problem, Kidney Stones Gastrointestinal: History of: GERD (Has required EGD in the past) Musculoskeletal: History of: Back/Neck Problems (neck surgery) Hematology: History of: Clotting Problems (filter) Other: History of: Miscellaneous Medical Problems (migraines, depression , hypothyroid) - Surgical History Cardiac Surgeries: Sugical HX of: Cardiac Catheterization HEENT Surgeries: Surgical HX of: Eye Surgery (cataract), Thyroid Surgery Patient denies: Tonsilectomy & Adenoidectomy Abdominal Surgeries: Surgical HX of: Abdominal Surgery (cholecystectomy and esophageal dilatation and wrap), Cholecystectomy, Colonoscopy, EGD Patient denies: Appendectomy Reproductive Surgeries: Surgical HX of;: Hysterectomy Orthopedic Surgeries: Surgical HX of;: Orthopedic Surgery (neck) Patient denies;: Total Hip Replacement, Total Knee Replacement - Family History Family History: Reports;: Family Diabetes (father), Family Heart Disease (father ), Family Hypertension (mother and father) - Social History Smoking Status: Never smoker Frequency of Alcohol Use: None Type of Drug Use: None Results - Labs CBC & BMP: 05/29/16 01:48 05/29/16 01:48 Lab Results: I have reviewed the past 24 hour labs
--- NOTE | 2016-05-29 17:57 | ECHO Report ---
Soni Garcia Exam Date: 05/29/2016 13:39 Referring Physician: Technologist: Aleshia Mobley RDCS Age: 61 Ht (in): Wt (lb): Gender: F Exam Location: [facility] Echo Indications: Chest pain, unspecified, Shortness of breath, Peripheral vascular disease, unspecified, Hypothyroidism, GERD BP: / HR: Rhythm: Sinus Technical Quality: Poor IMPRESSIONS Normal LV systolic and diastolic function, ejection fraction 55%. Mildly dilated right ventricle. Trace to mild mitral and tricuspid regurgitation. Aortic sclerosis without stenosis. Mild pulmonary hypertension with pulmonary artery pressure estimated at 48 mmHg. MEASUREMENTS (Male / Female) Normal Values 2D ECHO LV Diastolic Diameter PLAX 5.0 cm 4.2 - 5.9 / 3.9 - 5.3 cm LV Systolic Diameter PLAX 2.8 cm LV Fractional Shortening PLAX 43.7 % IVS Diastolic Thickness 0.9 cm 0.6 - 1.0 / 0.6 - 0.9 cm LVPW Diastolic Thickness 0.9 cm 0.6 - 1.0 / 0.6 - 0.9 cm RV Internal Dim ED PLAX 3.8 cm Aortic Root Diameter 3.0 cm LA Systolic Diameter LX 3.9 cm 3.0 - 4.0 / 2.7 - 3.8 cm DOPPLER TR Peak Velocity 309.0 cm/s TR Peak Gradient 38.2 mmHg FINDINGS Left Ventricle Normal left ventricular cavity size. Normal left ventricular wall thickness. Left ventricular ejection fraction is estimated at 55 %. Right Ventricle Mildly increased right ventricular size. Right Atrium Normal size. Left Atrium Normal size. Mitral Valve Thickened mitral valve. Trace to mild mitral valve regurgitation. Aortic Valve Aortic valve sclerosis without stenosis or regurgitation. Tricuspid Valve Morphologically normal tricuspid valve. Trace to mild tricuspid valve regurgitation. Tricuspid regurgitation velocities suggest a PAP of 48 mmHg. Pulmonic Valve Morphologically normal pulmonic valve without significant stenosis. There is no pulmonic regurgitation. Pericardium Normal pericardium without effusion. Aorta Normal ascending aorta dimension. Vannesa Melgar MD (Electronically Signed) Final Date: 29 May 2016 17:56
--- NOTE | 2016-05-29 19:11 | Nuclear Medicine Report ---
LEXISCAN CARDIOLITE DATE: 05/28/2016 REFERRING PHYSICIAN: Vannesa Melgar MD INTERPRETING PHYSICIAN: Vannesa Melgar MD INDICATIONS: A 61-year-old white female with intermediate risk of coronary artery disease, atypical chest pain. The patient was scheduled for a treadmill but was unable to reach target heart rate du e to shortness of breath and bilateral leg fatigue. No ST changes occurred. She was converted to L exiscan Cardiolite. EKG portion of the test was supervised and reported by practitioner, Maria De Jesus, re viewed by me. SPECT images were obtained in the short axis, horizontal, vertical, and long axes with gating. Ejec tion fraction is 68%. End-diastolic volume 65 mL, end-systolic volume 21 mL, stroke volume is 44 mL . Overall wall motion and thickening are grossly normal. At rest, there is a moderate extent, moderate intensity perfusion defect in the anterior and anteros eptal wall. With stress imaging, the previously seen defect resolves. On review of cine images, br east attenuation is noted. IMPRESSION: 1. POOR EXERCISE TOLERANCE. 2. NORMAL LEFT VENTRICULAR SYSTOLIC FUNCTION. 3. RESTING PERFUSION DEFECT THAT RESOLVES WITH STRESS WHEN COMPARED TO REST AND IS BELIEVED TO BE S ECONDARY TO BREAST ATTENUATION. 4. NO GROSS NUCLEAR EVIDENCE OF REVERSIBLE ISCHEMIA. Procedure performed and interpreted at [facility] Department of Radiology.
[2016-05-29] MEDS: INSULIN GLARGINE 100 UNIT/ML SUBCUT SCH (21:07)
[2016-05-29] MEDS: ATORVASTATIN 10 MG TABLET PO SCH (21:08)
[2016-05-30] MEDS: NITROGLYCERIN 2% OINT 1 INCH/GM PACK TOP SCH ×4 (00:09→17:15)
[2016-05-30] MEDS: ENOXAPARIN 100 MG/ML SYRINGE SUBCUT SCH ×2 (03:20→16:50)
[2016-05-30 04:48] LABS: Hematocrit 38.6 VOL% (35.7-47.0); Hemoglobin 11.9 GM/DL (12.0-16.0); Mean Corpuscular HGB Conc 30.8 GM/DL (32-36); Mean Corpuscular Hemoglobin 28 PG (27-34); Mean Corpuscular Volume 89.4 FL (87-102); Mean Platelet Volume 10.5 FL (9.6-12.0); Platelet Count 238 10*3/uL (130-400); Red Blood Count 4.32 10*6/uL (3.8-5.5); Red Cell Distribution Width 14.5 % (9.3-17.3); White Blood Count 7.3 10*3/uL (4.5-13.71)
[2016-05-30 04:49] LABS: Basophils # 0.1 10*3/uL (0.0-0.2); Basophils % 0.7 % (0.0-0.8); Eosinophils # 0.2 10*3/uL (0.0-0.87); Eosinophils % 2.5 % (0.00-10.9); Immature Granulocytes % 0.4 %; Immature Granulocytes Absolute 0.03 #; Lymphocytes # 2.1 10*3/uL (1.4-4.0); Monocytes # 0.6 10*3/uL (0.11-0.8); Neutrophils # 4.4 10*3/uL (1.4-7.4); Neutrophils % 60.4 % (38.7-73.9)
[2016-05-30 05:19] LABS: Osmolality,Calculated 288.8 MOS/KG (273-304); Potassium 3.8 MMOL/L (3.5-5.1)
[2016-05-30] MEDS: IPRATROPIUM 500 MCG/2.5 ML NEB RESP TX SCH ×4 (07:01→21:02)
[2016-05-30] MEDS: INSULIN REGULAR 100 UNIT/ML SUBCUT SCH ×4 (08:32→21:15)
[2016-05-30] MEDS: ChlordiazePOXIDE/CLIDINIUM 5-2.5 MG CAPSULE PO SCH ×3 (08:33→16:50)
[2016-05-30] MEDS: GABAPENTIN 300 MG CAPSULE PO SCH ×3 (09:00→20:56)
[2016-05-30] MEDS ORDERED: LIDOCAINE 2% 5 ML VIAL ONE (10:23)
[2016-05-30] MEDS ORDERED: PROPOFOL 200 MG/20 ML VIAL IV ONE (10:23)
--- NOTE | 2016-05-30 10:30 | History and Physical Update ---
History and Physical Update - Physical Exam Mental Status: alert and oriented Heart: regular rate and rhythm Lung: clear to auscultation Abdomen: within normal limits Vitals: within normal limits
--- NOTE | 2016-05-30 10:32 | Operative Note ---
Date of procedure: 05/30/16 Pre-op diagnosis: atypical chest pain Procedure: EGD with biopsy and esophageal dilatation 61-year-old female with known history of gastric after reflux ease, K by soft or stricture admitted with atypical chest pain negative cardiac workup now for EGD. Informed consent was obtained the patient She was sedated with Mac anesthesia per anesthesia protocol. Patient was placed in left lateral decubitus position the Olympus flexible video upper endoscope was inserted into the oral cavity under direct vision the esophagus was intubated. Findings: Esophagus-normal proximal and mid esophageal mucosa distal esophagus with moderate hiatal hernia. Distal esophageal stricture was identified. Over varices no esophagitis no Flores's were identified. Stomach-normal insufflation normal mucosa to direct retroflex views of the body fundus and cardia stomach. In the antrum diffuse changes of erosive gastritis were seen biopsies were taken. Pylorus-normal Duodenum-normal from above the duodenum to the third portion of the duodenum. The scope was removed and subsequently a 54 Turkmen bougie was passed without difficulty. Patient our procedure well she's discharge recovery in good condition. Postop diagnosis: #1 gastroesophageal reflux disease-continue PPI treatment and antireflux precautions #2 esophageal stricture repeat dilatation on an as-needed basis #3 erosive gastritis continue PPI treatment, avoid nonsteroidals, if H. pylori is present we will treat. Anesthesia: MAC Surgeon / Physician: Dae Rinaldi Estimated blood loss: none Specimens: other (erosive gastritis) Condition: stable Disposition: post procedure unit Results - Labs CBC & BMP: 05/30/16 04:33 05/30/16 04:33 Discharge Plan - Discharge Medications No Action Montelukast Tab [Singulair Tab] 10 mg PO DAILY Citalopram [CeleXA] 40 mg PO DAILY Liraglutide [Victoza 2-Jeffery] 1.6 ml IM AC SUPPER Bisoprolol Fumarate [Zebeta] 10 mg PO DAILY Aspirin [Ecotrin] 81 mg PO DAILY Albuterol Sulfate [Ventolin HFA] 2 puff INH Q4-6H PRN PRN Reason: Wheezing Levothyroxine Tab [Synthroid Tab] 137 mcg PO DAILY@0700 Clorazepate [Tranxene] 15 mg PO BID PRN PRN Reason: Agitation Pantoprazole Tab [Protonix Tab] 40 mg PO DAILY Metaxalone [Skelaxin] 800 mg PO TID PRN PRN Reason: Muscle Pain ChlordiazePOX/CLIDINIUM 5-2.5 [Librax] 1 capsule PO TIDAC Promethazine Tab [Phenergan Tab] 25 mg PO BID PRN PRN Reason: Nausea Insulin Aspart [NovoLOG FlexPen] See Protocol SUBCUT DIRECTED HYDROcodone/ACETAMIN 10-325 [[place] 10-325] 1 tablet PO Q6H PRN PRN Reason: Pain Gabapentin Cap/Tab [Neurontin Cap/Tab] 300 mg PO DAILY Insulin Detemir [Levemir] 25 unit SUBCUT BEDTIME Canagliflozin [Invokana] 300 mg PO DAILY Diclofenac Sodium 75 mg PO BID LORazepam TAB [Ativan Tab] 1 mg PO BID PRN PRN Reason: Agitation Fluticasone/Salmeterol 250-50 [Advair 250-50] 1 puff INH BID Ondansetron Tab [Zofran Tab] 4 mg PO TID PRN PRN Reason: Nausea traMADol TAB [Ultram] 50 mg PO Q6H PRN PRN Reason: Pain Potassium Chloride Cap/Tab [Micro K] 8 meq PO BID amLODIPine [Norvasc] 10 mg PO DAILY Zolpidem [Ambien] 5 mg PO BEDTIME PRN PRN Reason: Sleep - Follow Up or Referral Follow Up: [facility] [Outside] - 06/08/16 7:15 pm (Check in at [facility] desk. ) - Forms/Instructions
[2016-05-30] MEDS: MONTELUKAST 10 MG TABLET PO SCH (12:54)
[2016-05-30] MEDS: POTASSIUM CHLORIDE 20 MEQ TABLET PO SCH ×2 (12:54→20:56)
[2016-05-30] MEDS: FLUTICASONE/SALMETEROL 250-50 DISKUS 14 DOSE INH SCH ×2 (12:54→20:57)
[2016-05-30] MEDS: BISOPROLOL 5 MG TABLET PO SCH (12:54)
[2016-05-30] MEDS: LEVOTHYROXINE 137 MCG TABLET PO SCH (12:55)
[2016-05-30] MEDS: ASPIRIN EC 81 MG TABLET PO SCH (12:55)
[2016-05-30] MEDS: amLODIPine 10 MG TABLET PO SCH (12:55)
[2016-05-30] MEDS: DICLOFENAC SODIUM 75 MG TABLET PO SCH ×2 (12:55→20:56)
[2016-05-30] MEDS: DOCUSATE SODIUM 100 MG CAPSULE PO SCH ×2 (12:55→20:56)
[2016-05-30] MEDS: CITALOPRAM 40 MG TABLET PO SCH (12:57)
[2016-05-30] MEDS: PANTOPRAZOLE 40 MG VIAL IV SCH (12:57)
[2016-05-30] MEDS: METOPROLOL TARTRATE 25 MG TABLET PO SCH (13:47)
--- NOTE | 2016-05-30 16:35 | Internal Med Progress Note ---
Assessment and Plan (1) Chest pain Status: Acute Assessment and plan: 61-year-old female admitted to acute care * Chest pain. Lexiscan nuclear test was negative * Hypertension. Continue current medication * History of GERD. She underwent EGD report noted * Diabetes. Continue current treat * Left lower extremity pain. Not related to activity * Depression. Continue current treatment * Hypothyroidism. Will check the TSH * Hyperlipidemia. Will increase Lipitor dose * Patient has not been using her CPAP * Hopefully home in the morning Current Visit: Yes (2) Diabetes Status: Chronic Current Visit: No (3) Hypothyroidism Status: Chronic Current Visit: No (4) History of peripheral vascular disease Status: Chronic Current Visit: Yes (5) Depression Status: Acute Current Visit: Yes (6) Anxiety Status: Acute Current Visit: Yes (7) GERD (gastroesophageal reflux disease) Status: Chronic Current Visit: Yes Internal Medicine - PN: Subj Interval history: She is doing better today. She is still complaining of pain in her left leg. No chest pain or shortness of breath. No nausea vomiting or diarrhea Exam (Progress Note) - Constitutional Vitals: Period Temp Pulse Resp BP Sys/Ziegler Pulse Ox Last 24 Hr 96.2 F-98.9 F 56-84 16-20 112-162/48-97 89-99 Exam: Examination: GENERAL: NAD. HEENT: PERRLA. EOMI. NECK: Neck is supple. CVS: Regular rate and rhythm. RESPIRATORY: Lungs are clear. ABDOMEN: Soft and nontender. EXT: No edema. MSK: No obvious deformity. Results - Labs CBC & BMP: 05/30/16 04:33 05/30/16 04:33 Lab Results: I have reviewed the past 24 hour labs Specialty Discharge - Follow Up or Referrals Follow up with: [facility] [Outside] - 06/08/16 7:15 pm (Check in at [facility] desk. )
--- NOTE | 2016-05-30 20:40 | Cardiology Progress Note ---
Ko Hays Rachel, RN, am scribing for, and in the presence of, Vannesa Melgar MD 20:39. Assessment and Plan (1) Atypical chest pain Status: Acute Assessment and plan: Patient had negative cardiac workup and chest pain is now resolved. GI has been consulted for noncardiac chest pain. EGD was done today by Dr. Rinaldi. She was noted to have gastritis and recommended to treat with PPI and avoid NSAIDS. We will sign off. Please call if any acute cardiac conditions arise. Current Visit: Yes (2) History of peripheral vascular disease Status: Chronic Assessment and plan: She continues to complain of left lower extremity pain. Venous dopplers have been negative, arterial studies are unremarkable and she has 2+ pulses in bilateral extremities. Current Visit: Yes (3) Obstructive sleep apnea Status: Acute Assessment and plan: Management per Dr. Aguilar Current Visit: Yes (4) GERD (gastroesophageal reflux disease) Status: Chronic Current Visit: Yes (5) Diabetes Status: Chronic Assessment and plan: Continue current treatment. Current Visit: No (6) Hypothyroidism Status: Chronic Current Visit: No Cardiology - PN: Subj Interval history: Mrs. Garcia is a 61 year old [facility] patient of Dr. Baker. Cardiology has been consulted for chest pain. She has had a negative cardiac workup. GI has now been consulted for noncardiac chest pain. EGD was done today by Dr. Rinaldi. She was noted to have gastroesophageal reflux disease, esophageal stricture with dilation, and erosive gastritis. She continues to complain of LLE pain. However , Venous dopplers have been negative, arterial studies are unremarkable and she has 2+ pulses in bilateral extremities. She is in sinus rhythm without ectopy and over arrhythmias. Vital signs stable. Exam (Progress Note) - Constitutional Vitals: Period Temp Pulse Resp BP Sys/Ziegler Pulse Ox Last 24 Hr 96.2 F-98.9 F 56-78 16-20 112-162/48-97 89-99 General appearance: no acute distress - Head Head exam: Present: normal inspection, normocephalic, atraumatic - Eye Pupils: Present: JG. Absent: constricted, dilated, fixed, irregular, unequal - Neck Neck exam: Present: normal inspection. Absent: lymphadenopathy, meningismus, tenderness - Respiratory Respiratory exam: Present: clear to auscultation bilaterally. Absent: accessory muscle use, rales, rhonchi, stridor, wheezes - Cardiovascular Cardiovascular exam: Present: regular rate and rhythm. Absent: carotid bruit, gallop, systolic murmur - GI/Abdominal GI/Abdominal exam: Present: normal bowel sounds, soft. Absent: distended, firm , mass - Extremities Exam Extremities exam: Present: normal capillary refill, calf tenderness (LLE), edema (LLE edema noted with tenderness upon palpation), other (2+ DP and PT pulses palpated bilateraly. ) - Neurological Exam Neurological exam: Present: alert, oriented X3 - Psychiatric Psychiatric exam: Present: normal affect, normal mood. Absent: agitated, anxious - Skin Skin exam: Present: normal color, warm, dry. Absent: cyanosis, mottled Result/EKG - Labs CBC & BMP: 05/30/16 04:33 05/30/16 04:33 Lab Results: I have reviewed the past 24 hour labs Labs: Laboratory Results - last 24 hr 05/29/16 05/29/16 05/30/16 16:49 19:55 04:33 WBC 7.3 RBC 4.32 Hgb 11.9 L Hct 38.6 MCV 89.4 MCH 28 MCHC 30.8 L RDW 14.5 Plt Count 238 D MPV 10.5 Neut % (Auto) 60.4 Lymph % (Auto) 28.0 Lake % (Auto) 8.0 Eos % (Auto) 2.5 Baso % (Auto) 0.7 Neut # (Auto) 4.4 Lymph # (Auto) 2.1 Lake # (Auto) 0.6 Eos # (Auto) 0.2 Baso # (Auto) 0.1 Immature Gran % 0.4 Nucleated RBC % 0.0 Immature Gran # 0.03 Nucleated RBCs # 0.00 Sodium Potassium Chloride Carbon Dioxide Anion Gap BUN Creatinine GFR Calculation BUN/Creatinine Ratio Glucose POC Glucose 157 H 175 H Calculated Osmolality Calcium 05/30/16 05/30/16 05/30/16 04:33 07:38 11:17 WBC RBC Hgb Hct MCV MCH MCHC RDW Plt Count MPV Neut % (Auto) Lymph % (Auto) Lake % (Auto) Eos % (Auto) Baso % (Auto) Neut # (Auto) Lymph # (Auto) Lake # (Auto) Eos # (Auto) Baso # (Auto) Immature Gran % Nucleated RBC % Immature Gran # Nucleated RBCs # Sodium 144 Potassium 3.8 Chloride 105 Carbon Dioxide 29 Anion Gap 13.8 BUN 16 Creatinine 0.60 GFR Calculation 113 BUN/Creatinine Ratio 26.00 H Glucose 134 H POC Glucose 132 H 124 H Calculated Osmolality 288.8 Calcium 8.0 L - EKG EKG results: interpreted by me, sinus rhythm Specialty Discharge - Follow Up or Referrals Follow up with: [facility] [Outside] - 06/08/16 7:15 pm [facility] I, Vannesa Melgar MD, personally performed the services described in this documentation, ascribed by Corinne Connell RN in my presence, and it is both accurate and complete 039 .
[2016-05-30] MEDS: ATORVASTATIN 10 MG TABLET PO SCH (20:56)
[2016-05-30] MEDS: INSULIN GLARGINE 100 UNIT/ML SUBCUT SCH (20:57)
[2016-05-31] MEDS: NITROGLYCERIN 2% OINT 1 INCH/GM PACK TOP SCH ×2 (00:49→06:08)
[2016-05-31] MEDS: ENOXAPARIN 100 MG/ML SYRINGE SUBCUT SCH (02:03)
[2016-05-31] MEDS: LEVOTHYROXINE 137 MCG TABLET PO SCH (06:08)
--- NOTE | 2016-05-31 06:48 | Anesthesia ---
Anesthesia Post OP - Post Ansesthetic Evaluation Patient seen in post op: Yes Resp: within normal limits CV: within normal limits Mental: within normal limits Temp: within normal limits [id number]: within normal limits Nausea and Vomiting: within normal limits Pain: within normal limits
[2016-05-31] MEDS: IPRATROPIUM 500 MCG/2.5 ML NEB RESP TX SCH (07:34)
[2016-05-31 07:53] VITALS: BP 136/69
[2016-05-31] MEDS: INSULIN REGULAR 100 UNIT/ML SUBCUT SCH (07:53)
--- NOTE | 2016-05-31 08:27 | Discharge Summary ---
Hospital Course - Hospital Course Hospital Course: 61-year-old female admitted to acute care. Patient has history of hypertension , diabetes, asthma, depression, hypothyroidism, hyperlipidemia and gastroesophageal reflux disease. She came in with atypical chest pain. Patient had multiple risk factors and was evaluated by cardiology. She underwent cardiac workup including an echocardiogram and Lexiscan. The workup was negative. Patient was seen in consultation by Dr. Rinaldi. She had an EGD done which showed gastroesophageal reflux disease and erosive gastritis and esophageal stricture. She was dilated. She was also evaluated by sleep medicine. Patient has not been using her CPAP for several years. She has a steady set up for next month. She complained of pain in the left lower extremity. Her venous Dopplers were negative. We did arterial Doppler study on her lower extremity which was also negative. She is ready to be discharged home. I will see her back in the office in about 3-4 weeks. She had not brought her medications at time of admission and Benicar was left off from her medication list. She will restart at home. Her Zebeta has been discontinued and she has been started on Coreg 12.5 mg twice daily. Her medications have been sent to pharmacy. Her blood sugars were under good control during the hospital stay. Discussed with patient and her Diagnosis - Discharge Diagnosis (1) Chest pain Status: Acute (2) Diabetes Status: Chronic (3) Hypothyroidism Status: Chronic (4) History of peripheral vascular disease Status: Chronic (5) Depression Status: Acute (6) Anxiety Status: Acute (7) GERD (gastroesophageal reflux disease) Status: Chronic Specialty Discharge - Follow Up or Referrals Follow up with: [facility] [Outside] - 06/08/16 7:15 pm (Check in at [facility] desk. ) Discharge Plan - Discharge Data Disposition: Disch To Home/Self Care Condition at Discharge: Stable Discharge Diet: diabetic diet Activity: resume usual activities as tolerated - Discharge Medications New Atorvastatin [Lipitor] 10 mg PO BEDTIME #30 tablet Carvedilol [Coreg] 12.5 mg PO BID #60 tablet Continue Montelukast Tab [Singulair Tab] 10 mg PO DAILY Citalopram [CeleXA] 40 mg PO DAILY Liraglutide [Victoza 2-Jeffery] 1.6 ml IM AC SUPPER Aspirin [Ecotrin] 81 mg PO DAILY Albuterol Sulfate [Ventolin HFA] 2 puff INH Q4-6H PRN PRN Reason: Wheezing Levothyroxine Tab [Synthroid Tab] 137 mcg PO DAILY@0700 Clorazepate [Tranxene] 15 mg PO BID PRN PRN Reason: Agitation Pantoprazole Tab [Protonix Tab] 40 mg PO DAILY Metaxalone [Skelaxin] 800 mg PO TID PRN PRN Reason: Muscle Pain ChlordiazePOX/CLIDINIUM 5-2.5 [Librax] 1 capsule PO TIDAC Promethazine Tab [Phenergan Tab] 25 mg PO BID PRN PRN Reason: Nausea Insulin Aspart [NovoLOG FlexPen] See Protocol SUBCUT DIRECTED HYDROcodone/ACETAMIN 10-325 [[place] 10-325] 1 tablet PO Q6H PRN PRN Reason: Pain Gabapentin Cap/Tab [Neurontin Cap/Tab] 300 mg PO DAILY Insulin Detemir [Levemir] 25 unit SUBCUT BEDTIME Canagliflozin [Invokana] 300 mg PO DAILY Diclofenac Sodium 75 mg PO BID LORazepam TAB [Ativan Tab] 1 mg PO BID PRN PRN Reason: Agitation Fluticasone/Salmeterol 250-50 [Advair 250-50] 1 puff INH BID Ondansetron Tab [Zofran Tab] 4 mg PO TID PRN PRN Reason: Nausea traMADol TAB [Ultram] 50 mg PO Q6H PRN PRN Reason: Pain Potassium Chloride Cap/Tab [Micro K] 8 meq PO BID amLODIPine [Norvasc] 10 mg PO DAILY Zolpidem [Ambien] 5 mg PO BEDTIME PRN PRN Reason: Sleep Discontinued Bisoprolol Fumarate [Zebeta] 10 mg PO DAILY - Follow Up or Referral Follow Up: [facility] [Outside] - 06/08/16 7:15 pm (Check in at [facility] desk. ) - Forms/Instructions Additional Discharge Instructions: Appointment in the office in 4 weeks. Please call in her medications which are new Exam - Constitutional Vitals: Period Temp Pulse Resp BP Sys/Ziegler Pulse Ox Last 24 Hr 96.9 F-98.9 F 64-98 16-20 112-162/48-89 90-97 Exam: Examination: GENERAL: NAD. HEENT: PERRLA. EOMI. NECK: Neck is supple. CVS: Regular rate and rhythm. RESPIRATORY: Lungs are clear. ABDOMEN: Soft and nontender. EXT: No edema. MSK: No obvious deformity. Discharge Results Labs on day of discharge: Labs from last 24 hours 05/31/16 05/30/16 05/30/16 07:24 19:55 16:23 POC Glucose 143 H 163 H 164 H 05/30/16 11:17 POC Glucose 124 H DS: Provider Date of admission: 05/28/16 23:32 Primary care physician: . No PCP Attending physician on admission: Umesh Nagel MD Consults: 05/29/16 01:39 Consult to Case Mgmt/Social Srvs [CONS] Routine Reason for Case Mgmt/Social Srvs: Discharge Planning Consult to Physician [CONS] Routine Comment: chest pain Consulting Provider: Cardiology - [facility] When should Consulting Provider be notified: In am Consult to Specialist Group: Cardiology Person Notified: MARITZA Date Notified: 05/29/16 Time Notified: 07:50 05/29/16 08:47 Consult to Physician [CONS] Routine Comment: Sleep evaluation Consulting Provider: Raeann Aguilar 05/29/16 09:02 Consult to Physician [CONS] Routine Comment: GERD Consulting Provider: Dae Rinaldi Consult to Specialist Group: Gastroenterology Person Notified: AUTUMN Date Notified: 05/29/16 Time Notified: 09:50 Consult Notification Comment: TEXTED TO [place] AT 0940 05/29/16 09:32 Consult to Sleep Center [CONS] Routine Reason for Sleep Center: Sleep Center Physician Discharging clinician: Umesh Nagel MD
[2016-05-31] MEDS ORDERED: CARVEDILOL 12.5 MG TABLET PO SCH (09:00)
[2016-05-31] MEDS: amLODIPine 10 MG TABLET PO SCH (09:10)
[2016-05-31] MEDS: CITALOPRAM 40 MG TABLET PO SCH (09:10)
[2016-05-31] MEDS: ASPIRIN EC 81 MG TABLET PO SCH (09:10)
[2016-05-31] MEDS: GABAPENTIN 300 MG CAPSULE PO SCH (09:10)
[2016-05-31] MEDS: POTASSIUM CHLORIDE 20 MEQ TABLET PO SCH (09:10)
[2016-05-31] MEDS: MONTELUKAST 10 MG TABLET PO SCH (09:10)
[2016-05-31] MEDS: PANTOPRAZOLE 40 MG VIAL IV SCH (09:11)
[2016-05-31] MEDS: DOCUSATE SODIUM 100 MG CAPSULE PO SCH (09:11)
[2016-05-31] MEDS: DICLOFENAC SODIUM 75 MG TABLET PO SCH (09:11)
[2016-05-31] MEDS: ChlordiazePOXIDE/CLIDINIUM 5-2.5 MG CAPSULE PO SCH (09:11)
[2016-05-31] MEDS: FLUTICASONE/SALMETEROL 250-50 DISKUS 14 DOSE INH SCH (10:09)
--- NOTE | 2016-05-31 12:48 | Pathology Report from [facility] ---
ACCESSION # : [id number] PATIENT NAME : Soni Salas ORDERING DR : ARACELI CASTRO MD CLINICAL HX: Chest pain, anemia, dysphagia POST-OP DX: Same SPECIMEN INFO: Gastric biopsy GROSS DESCRIPTION: The specimen is received in formalin labeled with the patient 's name Soni Salas consists of two red castellanos mucosal tissue fragments together measuring 0.8 x up to 0.4 cm. Submitted in one cassette. DIAGNOSIS FOR SONI SALAS: GASTRIC BIOPSY: Chronic gastritis, focally active, focal surface erosion, regenerative/reactive mucosal changes. H. pylori not seen on special stain. SERVICE DATE: 05/30/2016 REPORT DATE: 05/31/2016 PATHOLOGIST: Virgen Holder M.D. [facility]
== END 2016-05-31 10:47 | disposition home or self-care (01) | DRG 392 ==
LOC: N.ED 21:56 → N.EDINP 23:32 → N.TELEN 05-29 00:04
PROVIDERS: ADMIT Internal Medicine; ATTEND Internal Medicine